=== PATIENT | female | born 1970 | race Caucasian/White ===

== ENCOUNTER 2024-05-15 20:43 | Emergency (ER) | payer OTHER ==
[2024-05-15 20:48] VITALS: TEMP 98.4
[2024-05-15 23:11] VITALS: BP 141/100; PULSE 110; RESP 18
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
== END 2024-05-15 23:26 | disposition home or self-care (01) ==
LOC: EC 20:43
DX: Z02.89 Encounter for other administrative examinations (principal); F10.129 Alcohol abuse with intoxication, unspecified
CPT/HCPCS: 99284